=== PATIENT | male | born 1995 | race African-American/Black ===

== ENCOUNTER 2019-09-12 14:46 | Emergency (ER) | payer BC, OTHER ==
[~2019-09-12] VITALS: Ht 193 cm; Wt 77.1 kg
[2019-09-12 15:14] VITALS: BP 148/91
[2019-09-12] MEDS: IBUPROFEN 600 MG TABLET PO ONE (15:37)
--- NOTE | 2019-09-12 15:37 | NUR ---
For Discharge Patient discharged to home in stable condition. Written and verbal after care instructions given. Patient verbalizes understanding of instruction.
== END 2019-09-12 15:39 | disposition home or self-care (01) ==
LOC: ER 14:49
DX: S19.80XA Other specified injuries of unspecified part of neck, initial encounter (principal); V49.49XA Driver injured in collision with other motor vehicles in traffic accident, initial encounter; Y93.89 Activity, other specified; Y92.413 State road as the place of occurrence of the external cause; Y99.8 Other external cause status